=== PATIENT | female | born 1995 | race Caucasian/White ===

== ENCOUNTER 2024-02-10 17:48 | Inpatient (IN) ==
[2024-02-10] MEDS ORDERED: Lidocaine 1% VIAL 10 MG/ML 30 ML VIAL INJ PRN (18:40)
[2024-02-10] MEDS ORDERED: Buffered Lidocaine 1% SYRIN 1 ml INTRADERM ONE (18:40)
[2024-02-10] MEDS: Dinoprostone 10 MG VAG.SUPP VAGINAL ONE (19:17)
[2024-02-11 00:34] LABS: Urine Benzodiazepine Screen None Detected (None Detect); Urine Cannabinoids Screen None Detected (None Detect); Urine Opiates Screen None Detected (None Detect)
[2024-02-11] MEDS: Oxytocin in LR 20,000 MILLI.UNIT/1,000 ML BAG IV SCH (10:07)
[2024-02-11] MEDS: Lactated Ringers 1000 ml BAG 1,000 ML IV ONE (10:07)
[2024-02-11 10:36] LABS: ABS Basophils 0.1 10^3/uL (0.0-0.1); ABS Eosinophils 0.1 10^3/uL (0.0-0.5); ABS Lymphocytes 1.6 10^3/uL (1.0-4.8); ABS Monocytes 0.7 10^3/uL (0.0-0.9); ABS Neutrophils 7.9 10^3/uL (1.5-7.6); ABS Nucleated RBC 0.01 10^3/ul; Eosinophil % 0.7 %; Hematocrit 34.7 % (35-45); Lymphocyte % 15.4 %; Mean Corpuscular Hemoglobin 25.9 pg (27-33); Mean Corpuscular Hgb Conc 31.8 g/dL (31-36); Mean Corpuscular Volume 81.5 fL (80-97); Mean Platelet Volume 9.5 fL (7.5-11.2); Nucleated Red Blood Cells % 0.1 %/100WBC (0.0-0.8); Platelet Count 200 10^3/uL (150-450); Red Blood Count 4.25 10^6/uL (3.63-4.92); Red Cell Distribution Width 22.7 % (12-17); White Blood Count 10.3 10^3/uL (3.8-11.8)
[2024-02-11] MEDS: OBEPIDURAL (200 ML) 200 ML EPIDURAL SCH (18:45)
[2024-02-11] MEDS ORDERED: Phenylephrine 40 mcg/mL 10mL (400mcg) SYRINGE IV PUSH PRN (18:51)
[2024-02-11] MEDS: Lactated Ringers 1000 ml BAG 1,000 ML IV SCH (18:51)
[2024-02-11] MEDS: Phenylephrine 40 mcg/mL 10mL (400mcg) SYRINGE IV PUSH PRN (18:57)
[2024-02-12] MEDS: Ondansetron 4 mg VIAL 2 MG/ML 2 ml VIAL IV PRN (02:39)
[2024-02-12] MEDS: Methylergonovine 0.2 mg AMPULE 1 ml AMP IM ONE (06:55)
[2024-02-12] MEDS: Ondansetron 4 mg VIAL 2 MG/ML 2 ml VIAL IV ONE (07:52)
[2024-02-12] MEDS: Dibucaine 1% OINT 28.35 GM TUBE PR PRN (07:52)
[2024-02-12] MEDS: Witch Hazel PAD JAR TOPICAL PRN (07:52)
[2024-02-12] MEDS: Oxytocin in LR 20,000 MILLI.UNIT/1,000 ML BAG IV SCH (07:59)
[2024-02-12] MEDS ORDERED: Lactated Ringers 1000 ml BAG 1,000 ML IV SCH (08:00)
[2024-02-12] MEDS: Lactated Ringers 1000 ml BAG 1,000 ML IV ONE (10:57)
[2024-02-12] MEDS: Lactated Ringers 1000 ml BAG 1,000 ML IV SCH (10:57)
[2024-02-12] MEDS: Lidocaine 1.5% EPI 1:200,000 30 ML SDV ONE (10:57)
[2024-02-12] MEDS: OBEPIDURAL (200 ML) 200 ML EPIDURAL ONE (10:57)
[2024-02-12] MEDS: Methylergonovine 0.2 mg AMPULE 1 ml AMP ONE (11:22)
[2024-02-13 06:40] LABS: ABS Eosinophils 0.1 10^3/uL (0.0-0.5); ABS Lymphocytes 2.3 10^3/uL (1.0-4.8); ABS Monocytes 0.9 10^3/uL (0.0-0.9); ABS Neutrophils 11.4 10^3/uL (1.5-7.6); Eosinophil % 0.6 %; Hematocrit 25.3 % (35-45); Lymphocyte % 15.5 %; Mean Corpuscular Hemoglobin 26.3 pg (27-33); Mean Corpuscular Hgb Conc 31.8 g/dL (31-36); Mean Corpuscular Volume 82.7 fL (80-97); Mean Platelet Volume 9.1 fL (7.5-11.2); Platelet Count 159 10^3/uL (150-450); Red Blood Count 3.06 10^6/uL (3.63-4.92); Red Cell Distribution Width 22.8 % (12-17); White Blood Count 14.7 10^3/uL (3.8-11.8)
[2024-02-13] MEDS: Measles, Mumps,Rubella VACC 0.5 ML/VIAL SUBCUT ONE ×2 (20:24→22:45)
[2024-02-14 09:00] VITALS: BP 128/69
== END 2024-02-14 10:25 | disposition home or self-care (01) | DRG 560 ==
LOC: MCHOBOUT 17:48 → MCHOB 18:49
PROVIDERS: ADMIT Midwife; ATTEND Midwife